=== PATIENT | female | born 1965 | race Caucasian/White ===

== ENCOUNTER 2016-10-21 11:50 | Emergency (ER) ==
[2016-10-21 12:01] VITALS: BP 167/98
[2016-10-21 12:06] LABS: URINE CULTURE PL NEEDED? NO; URINE SOURCE CLEAN CATCH
[2016-10-21 12:13] LABS: BILIRUBIN URINE NEGATIVE (NEGATIVE); BLOOD URINE NEGATIVE (NEGATIVE); CLARITY SL. CLOUDY (CLEAR); COLOR YELLOW; GLUCOSE URINE NEGATIVE (NEGATIVE); LEUKOCYTES URINE TRACE (NEGATIVE); NITRITE URINE NEGATIVE (NEGATIVE); PROTEIN URINE NEGATIVE (NEGATIVE); SP GRAVITY URINE 1.025; UROBILINOGEN URINE 1+(1 mg/dL)
[2016-10-21 12:23] LABS: URINE EPITHELIAL CELLS >10 /HPF (<10); URINE WBC <10 /HPF (<10)
[2016-10-21] MEDS ORDERED: ZOFRAN ODT PO ONE (13:38)
[2016-10-21] MEDS ORDERED: NORCO-5 PO ONE (13:38)
[2016-10-21] MEDS ORDERED: KEFLEX PO ONE (13:38)
--- NOTE | 2016-10-21 13:40 | PROVIDER DOCUMENTATION ---
HPI-Female /OB/Breast - General Source: reports: patient - History of Present Illness-Female /OB Does patient report she is ?: No Location of complaint: reports: other (lower back) Radiation: reports: none Quality of Pain: reports: aching Severity in ED: reports: mild Onset/Duration: reports: unsure Timing: reports: still present Context/Activities at Onset: reports: light activity Vaginal Symptoms: reports: foul odor Vaginal Bleeding Amount: None Urinary Symptoms: reports: dysuria Related Symptoms: reports: no symptoms Leakage of Fluid: none Sexual intercourse history: reports: Not Active Contraception: reports: none Modifying Factors: improves with: nothing Associated Symptoms: reports: nausea Similar Symptoms Previously?: Yes Recently seen or treated by another doctor?: No <Mary Perera - Last Filed: 10/21/16 13:36> <Noah Stapleton - Last Filed: 10/21/16 13:46> - General Chief Complaint: UTI Symptoms Stated Complaint: TOOTHACHE/UTI SX Time Seen by Provider: 10/21/16 13:17 Allergies/Adverse Reactions: Patient Allergies Allergy/AdvReac Type Severity Reaction Status Date / Time Penicillins Allergy ANAPHYLAXIS Verified 04/13/16 23:39 venom-honey bee Allergy ANAPHYLAXIS Verified 04/13/16 23:39 [bee venom (honey bee)] Sulfa (Sulfonamide AdvReac RASH Verified 04/13/16 23:39 Antibiotics) Home Medications: Home Medication List Medication Instructions Recorded Confirmed Last Taken Type Albuterol Sulfate Inhaler 60 puff .SEE ORDER [id number] #1 01/02/16 03/02/16 Unknown Rx [Ventolin Hfa] inhaler Fluticasone/Salmet 100/50 INH 1 puff INH RTBID #1 inhaler 01/02/16 03/02/16 Unknown Rx [Advair 100/50 Diskus] Methocarbamol [Robaxin-750] 750 mg PO 3-4XDAY PRN #30 tablet 03/02/16 Unknown Rx Tramadol [Ultram] 50 mg PO Q6H PRN PRN #30 tablet 03/02/16 Unknown Rx Cyclobenzaprine [Flexeril] 10 mg PO TID #20 tablet 03/31/16 Unknown Rx Famotidine [Pepcid] 20 mg PO DAILY #20 tablet 03/31/16 Unknown Rx Naproxen 500 mg PO BID PRN #30 tablet 03/31/16 Unknown Rx Methocarbamol [Robaxin-750] 750 mg PO TID #30 tablet 04/13/16 Unknown Rx Naproxen 375 mg PO BID #20 tablet 04/13/16 Unknown Rx Nitrofurantoin Macrocrystal 100 mg PO BID #20 capsule 04/13/16 Unknown Rx [Macrodantin] Ondansetron HCl [Zofran] 4 mg PO TID #10 tablet 04/13/16 Unknown Rx Cephalexin [Keflex] 500 mg PO Q6HR #28 capsule 10/21/16 Unknown Rx Ibuprofen [Motrin] 800 mg PO Q8H PRN PRN #20 tablet 10/21/16 Unknown Rx Promethazine [Phenergan] 25 mg PO Q6H PRN PRN #20 tablet 10/21/16 Unknown Rx - History of Present Illness-Female /OB Nature of Presenting Problem: Pt is 51 y/o F presents to the ED with UTI like symptoms. Pt states N but no V. Pt states pain in lower back. Pt denies hematuria. (Mary Perera) Review of Systems - Adult - REVIEW OF SYSTEMS - ADULT Constitutional: denies: chills, fever Eyes: denies: blurred vision, double vision Ears, Nose, Mouth & Throat: denies: ear pain, nose pain, throat pain Cardiovascular: denies: chest pain, heart murmur, irregular heart rate Respiratory: denies: cough, shortness of breath, wheezing Gastrointestinal: denies: abdominal pain, diarrhea, nausea, vomiting Genitourinary: reports: dysuria. denies: hematuria Musculoskeletal: reports: back pain. denies: bone pain, joint pain, neck pain Integumentary: denies: hives, itching Neurological: denies: dizziness/vertigo, headache/migraines Psychiatric: denies: anxiety, depression Endocrine: reports: no symptoms reported Hematologic/Lymphatic: reports: no symptoms reported Allergic/Immunologic: reports: no symptoms reported All Other Systems: Reviewed and Negative <Mary Perera - Last Filed: 10/21/16 13:36> Past History - Adult - PAST MEDICAL HISTORY-ADULT Review of Records: reports: Nursing Assessment Review, Medications Reviewed, Social history reviewed & non-contributory. Major Childhood Illnesses: reports: denies history Cardiovascular: reports: HTN Respiratory: reports: asthma, COPD Gastrointestinal: reports: GERD Obstetrical/Gynecological: reports: denies history Genitourinary: reports: denies history Musculoskeletal: reports: denies history Neurological: reports: denies history Endocrine/Immune: reports: Diabetes Other Conditions: reports: denies history - PRIOR SURGERIES/PROCEDURES Surgical/Procedure History: reports: cholecystectomy, BTL, tonsillectomy, other (oral) - PRIOR HOSPITALIZATIONS Prior Hospitalizations: reports: none - IMMUNIZATION STATUS Childhood Immunizations: See Nurse Assessment Flu Vaccine: See Nurse Assessment - FAMILY HISTORY Family History: reviewed, not pertinent - SOCIAL HISTORY Smoking: cigarettes, greater than 1 pack/day Provider spent 3-5 mins advising pt. on dangers of tobacco.: Discussed manners to quit use, and f/u contacts for add'l counseling. Substance Use: denies Living Situation: family <Mary Perera - Last Filed: 10/21/16 13:36> Physical Exam-General - PHYSICAL EXAM-ADULT Initial Vital Signs Reviewed: Yes - CONSTITUTIONAL General Appearance: appears well, alert, no apparent distress - EYES Eyes: PERRL/EOMI, pink conjunctivae, fundi clear, no AV nicking - HEAD, EARS, NOSE, MOUTH & THROAT HENMT: normocephalic/atraumatic, moist mucous membranes, normal ENT inspection, TMs normal, pharynx normal - NECK Neck: non-tender, full range of motion, supple, normal inspection - RESPIRATORY Respiratory: chest non-tender, lungs clear, normal breath sounds, no pleuratic chest pain, no respiratory distress, no accessory muscle use - CARDIOVASCULAR Cardiovascular: normal peripheral pulses, regular rate, rhythm, no edema, no gallop, no JVD, no murmur - GASTROINTESTINAL (ABDOMEN) Abdominal Exam: normal bowel sounds, non tender, soft, no organomegaly, no pulsatile mass - LYMPHATIC Lymphatic: no adenopathy - MUSCULOSKELETAL Back Exam: normal inspection, no vertebral tenderness, CVA tenderness Extremity: normal range of motion, non-tender, normal gait, normal inspection, no pedal edema, no calf tenderness, normal capillary refill - SKIN Integumentary: normal color, normal turgor, warm/dry - NEUROLOGIC Neurologic: director of materials management II-XII nml as tested, grossly normal, no motor/sensory deficits - PSYCHIATRIC Psych/Mental Status: normal mood/affect, normal thought content, normal thought process, oriented x 3 <Mary Perera - Last Filed: 10/21/16 13:36> Progress <Mray Perera - Last Filed: 10/21/16 13:36> <Noah Stapleton - Last Filed: 10/21/16 13:46> - PLAN OF CARE/RESULTS Progress/Plan/Lab Results: Laboratory Tests 10/21/16 11:58 Urine Source CLEAN CATCH Urine Color YELLOW Urine Clarity SL. CLOUDY A Urine pH 6.0 Ur Specific [place] 1.025 Urine Protein NEGATIVE Urine Ketones 1+(Small) A Urine Blood NEGATIVE Urine Nitrite NEGATIVE Urine Bilirubin NEGATIVE Urine Urobilinogen 1+(1 mg/dL) Urine Microscopic RBC Not Reportable Urine WBC TRACE A Urine Microscopic WBC <10 Ur Epithelial Cells >10 A Urine Glucose NEGATIVE Orders Category Date Time Status URINALYSIS PL W/POSS RFLX CULT [URINALYSIS] Stat Lab 10/21/16 11:58 Completed CephALEXIN [Keflex] Med 10/21/16 13:38 Discontinued 500 mg PO NOW ONE Hydrocodone/APAP 5 mg/325 mg [Shelbiana-5] Med 10/21/16 13:38 Discontinued 1 each PO NOW ONE Ondansetron Odt [Zofran Odt] Med 10/21/16 13:38 Discontinued 4 mg PO NOW ONE Vital Signs - 24 hr 10/21/16 11:59 Temperature 98.2 F Pulse Rate 93 H Respiratory 18 Rate Blood Pressure 167/98 O2 Sat by Pulse 100 Oximetry (Mary Perera) Departure <Mary Perera - Last Filed: 10/21/16 13:36> - Departure Time of Disposition Order: 13:45 Certified Medical Emergency: Urgent <Noah Stapleton - Last Filed: 10/21/16 13:46> - Departure DIAGNOSIS: Dysuria, Toothache Disposition: HOME 01 Condition: Good Additional Instructions: Take medication as prescribed. Follow up with your primary care provider. ED Follow Up Instructions: You have been treated by a care provider in the Emergency Department. These instructions are being provided to you so you can have an understanding of how to care for yourself upon discharge. Upon discharge from the Emergency Department, you are responsible for making arrangements for follow-up care by a physician of your choice. Take all prescribed medications as directed. Return to the Emergency Department immediately for any new or worsening symptoms. You may call the Physician Referral phone number at [phone] to obtain a list of Physicians who are taking new patients. Prescriptions: Cephalexin [Keflex] 500 mg PO Q6HR #28 capsule Ibuprofen [Motrin] 800 mg PO Q8H PRN PRN #20 tablet PRN Reason: inflammation Promethazine [Phenergan] 25 mg PO Q6H PRN PRN #20 tablet PRN Reason: Nausea Attestation - Scribe Verification/Attestation Scribe:: aMry Perera Acting as Scribe for:: Noah Stapleton Scribe documention review:: This chart was documented by a scribe and accurately reflects the service the provider performed and the decisions made by the provider. <Mary Perera - Last Filed: 10/21/16 13:36> - Physician/ NORMA Attestation Patient care was provided by Advanced Practice Provider:: Yes Advanced Practice Provider:: Noah Stapleton Advanced Practice Provider documentation review:: The Mid-level provider documentation, treatment plan and medical decision making was reviewed by the physician who agrees with all treatment and medical decision making by the MLP. <Noah Stapleton - Last Filed: 10/21/16 13:46> Physician Attestation
== END 2016-10-21 13:54 | disposition home or self-care (01) ==
LOC: P.ED 11:50
DX: R30.0 Dysuria (principal); K08.89 Other specified disorders of teeth and supporting structures; M54.5 Low back pain; R11.0 Nausea; I10 Essential (primary) hypertension; J45.909 Unspecified asthma, uncomplicated; E11.9 Type 2 diabetes mellitus without complications; F17.210 Nicotine dependence, cigarettes, uncomplicated; Z79.51 Long term (current) use of inhaled steroids; Z79.899 Other long term (current) drug therapy; Z71.6 Tobacco abuse counseling
CPT/HCPCS: 81001; 99283